=== PATIENT | male | born 1965 | race Caucasian/White ===

== ENCOUNTER 2019-11-27 01:49 | Outpatient (CLI) | payer OTHER, SELFPAY ==
[2019-11-27 19:19] LABS: SARS-CoV-2 RNA PCR Negative
== END 2019-11-27 01:50 | disposition home or self-care (01) ==
LOC: ANHCOVIDDT 01:49
PROVIDERS: PCP Family Medicine; Visit Provider Internal Medicine Gastroenterology
DX: Z01.812 Encounter for preprocedural laboratory examination (principal); Z11.59 Encounter for screening for other viral diseases
CPT/HCPCS: 87635; C9803; U0003

== ENCOUNTER 2019-11-29 00:27 | Day surgery (SDC) | payer OTHER, SELFPAY ==
[2019-11-22 14:17] VITALS: BMI 35.9
[2019-11-29 09:04] VITALS: BP 134/83; PULSE 72; RESP 20; TEMP 36.6; O2SAT 97
--- NOTE | 2019-11-29 09:12 | P.HP_ITS ---
History of Present Illness History of Present Illness Consent: Risks, benefits, and alternatives have been discussed and questions answered. Patient agrees to proceed with procedure. Chief complaint: neoplasm screening Narrative: Gumaro Ortiz is a 54 year old male referred for colon cancer screening. This is his 1st colonoscopy [facility] Social History Social History Smoking packs per day: 1 Smoking cigarettes per day: 20.0 Years smoked: 20 Smoking pack-years: 20.00 Smoking status: Former smoker Tobacco type: cigarettes Alcohol intake: current Drinks per week: 1 Alcohol use details: BEER Substance use: current Substance use type: marijuana Other substance usage details: OCCASSIONALY Last use: 11/21/2019 Living arrangements: with family Spiritual care concerns: No Meds Home Medications and Allergies Home Medications Medication Instructions Recorded Confirmed Type budesonide-formoterol [Symbicort] 2 puff INHALATION BID 11/22/19 11/22/19 History calcium polycarbophil [FiberCon] 1,250 mg PO DAILY 11/22/19 11/22/19 History ginkgo biloba 60 mg PO BID 11/22/19 11/22/19 History fewvjgzf-tameq-jskjl-CF borate 1 tablet PO DAILY 11/22/19 11/22/19 History [Move Free [facility]] loratadine-pseudoephedrine 1 tablet PO DAILY 11/22/19 11/22/19 History [Claritin-D 24 Hour] Allergies Allergy/AdvReac Type Severity Reaction Status Date / Time No Known Allergies Allergy Verified 11/29/19 09:03 Vital Signs Vital Signs - 24 hr 11/29/19 09:04 Temperature 36.6 C Pulse Rate 72 Respiratory Rate 20 Blood Pressure 134/83 Pulse Oximetry 97 Exam Resp: Auscultation: clear to auscultation bilaterally Cardio: Rate: regular rate Rhythm: regular rhythm GI: GI Palp: Yes Soft to palpation and No Tenderness to palpation present (GI) Assessment and Plan Assessment and plan (1) Colon cancer screening: Code(s): Z12.11 - Encounter for screening for malignant neoplasm of colon Status: Acute Assessment and Plan: Colonoscopy with possible biopsy or polypectomy or cautery or injection of substances.
[2019-11-29] MEDS: LACTATED RINGERS 1,000 ML 150 ML IV CONT (09:18)
--- NOTE | 2019-11-29 09:30 | WPDANESEPPF ---
Anes - Initial Pre Proc Eval Procedure: Operation Date: 11/29/19 10:00 Proposed Procedures p Screening Colonoscopy - Chandler Espinoza MD Date/Time: 11/29/19 09:30 Surgeon: Chandler Espinoza MD Pre Op Diagnosis: neoplasm screening Patient Data Age: 54 Gender: M Height: 5 ft 8 in Weight: 105.4 kg Last Vital Signs Temp 97.9 F 11/29/19 09:04 Pulse 72 11/29/19 09:04 Resp 20 11/29/19 09:04 BP 134/83 11/29/19 09:04 Pulse Ox 97 11/29/19 09:04 Allergies Allergy/AdvReac Type Severity Reaction Status Date / Time No Known Allergies Allergy Verified 11/29/19 09:03 Home Medications Medication Instructions Recorded Confirmed Type budesonide-formoterol [Symbicort] 2 puff INHALATION BID 11/22/19 11/22/19 History calcium polycarbophil [FiberCon] 1,250 mg PO DAILY 11/22/19 11/22/19 History ginkgo biloba 60 mg PO BID 11/22/19 11/22/19 History baziabta-xrpll-wrada-CF borate 1 tablet PO DAILY 11/22/19 11/22/19 History [[facility]] loratadine-pseudoephedrine 1 tablet PO DAILY 11/22/19 11/22/19 History [Claritin-D 24 Hour] Patient hx anesthesia problems: none Family hx anesthesia problems: none PMFSH Past Medical History Medical History (Updated 11/29/19 @ 09:25 by Conor Lemus MD) Asthma Social History Social History Smoking packs per day: 1 Smoking cigarettes per day: 20.0 Years smoked: 20 Smoking pack-years: 20.00 Smoking status: Former smoker Tobacco type: cigarettes Alcohol intake: current Drinks per week: 1 Alcohol use details: BEER Substance use: current Substance use type: marijuana Other substance usage details: OCCASSIONALY Last use: 11/21/2019 Living arrangements: with family Spiritual care concerns: No Anes - Eval Final PreProcedure Day of Procedure 11/29/19 09:30 Patient weight: obese Heart: regular rate and rhythm Lungs: clear to auscultation Airway: Mallampati scale class II Neurological: alert and oriented Last oral intake: >/= 8 hours ASA classification: III Emergent: no Anesthetic plan: proceed Anesthesia type and monitoring: general GIVS and standard monitoring Informed Consent: The patient's anesthetic plan and its attendant risks and benefits were discussed with the patient/family/POA. Questions were solicited and answers provided to the satisfaction of the patient/family/POA.
[2019-11-29 10:07] VITALS: BP 104/63; PULSE 75; RESP 15; O2SAT 97
[2019-11-29 10:17] VITALS: BP 106/61; PULSE 69; RESP 20; O2SAT 97
[2019-11-29 10:27] VITALS: BP 114/69; PULSE 69; RESP 22; O2SAT 98
== END 2019-11-29 10:33 | disposition home or self-care (01) ==
PROVIDERS: PCP Family Medicine; Visit Provider Internal Medicine Gastroenterology
PROC: 0DJD8ZZ Inspection of Lower Intestinal Tract, Via Natural or Artificial Opening Endoscopic (ICD-10-PCS; CPT 45378; principal; 2019-11-29 10:00)
DX: Z12.11 Encounter for screening for malignant neoplasm of colon (principal); K57.30 Diverticulosis of large intestine without perforation or abscess without bleeding; J45.909 Unspecified asthma, uncomplicated; Z87.891 Personal history of nicotine dependence; F12.90 Cannabis use, unspecified, uncomplicated; E66.9 Obesity, unspecified; Z68.35 Body mass index [BMI] 35.0-35.9, adult
CPT/HCPCS: 45378; J2704; J7120

== ENCOUNTER 2023-09-27 15:21 | Outpatient (CLI) | payer OTHER, SELFPAY ==
--- NOTE | ~2023-09-27 | XR_ITS ---
[id number] Ordering provider: Emmett Silva MD History: . M54.9 - Dorsalgia, unspecified . Comparison: None. FINDINGS: VERTEBRAL BODIES: Normal height and alignment. No visible fracture or subluxation. The dens is intact . Degenerative changes of the spine. DISK SPACES: Well maintained. PARASPINOUS SOFT TISSUES: No prevertebral soft tissue swelling. IMPRESSION: No acute osseous abnormality cervical spine. Reviewed, dictated and finalized at location A.
--- NOTE | ~2023-09-27 | XR_ITS ---
3 VIEWS THORACIC SPINE Ordering provider: Emmett Silva MD History: . M54.9 - Dorsalgia, unspecified . Comparison: None. FINDINGS: VERTEBRAL BODIES: Normal height and alignment. No visible fracture or subluxation. Degenerative murillo es of the spine. DISK SPACES: Normal. SOFT TISSUES: Normal. IMPRESSION: No acute osseous abnormality of the thoracic spine. Reviewed, dictated and finalized at location A.
== END 2023-09-27 15:22 ==
LOC: MICIMG 15:21
PROVIDERS: PCP Family Medicine; Visit Provider Family Medicine
DX: M54.9 Dorsalgia, unspecified (principal)
CPT/HCPCS: 72040; 72070

== ENCOUNTER 2024-09-16 10:30 | Outpatient (RCR) | payer OTHER, SELFPAY | END 2024-10-24 23:59 | disposition home or self-care (01) | LOC: ANHDMC 10:30 | PROVIDERS: PCP Family Medicine | DX: E11.65 Type 2 diabetes mellitus with hyperglycemia (principal); Z71.89 Other specified counseling | CPT/HCPCS: G0108 ==